=== PATIENT | female | born 1955 | race Caucasian/White ===

== ENCOUNTER 2024-08-02 07:22 | Day surgery (SDC) | payer MEDICARE ==
[~2024-08-02] VITALS: Ht 160 cm; Wt 63.5 kg
[~2024-08-02 07:22] MED LIST: ATOR40TA75 PO; EFFE75CA2 PO; LISI40TA4 PO; LORA-243 PO; METO1TAB32 PO; PANT-23 PO; SYNT100T PO
[2024-08-02] MEDS ORDERED: fentaNYL 100 MCG/2 ML INJECTION As Ordered ONE (07:49)
[2024-08-02] MEDS ORDERED: propofoL 200 MG/20 ML VIAL As Ordered ONE (07:50)
[2024-08-02] MEDS ORDERED: MIDAZOLAM INJ 2MG/2ML VIAL As Ordered ONE (07:50)
[2024-08-02] MEDS ORDERED: ONDANSETRON 4MG 2ML VIAL As Ordered ONE (07:50)
[2024-08-02] MEDS ORDERED: LIDOCAINE 2% 100MG/5ML SDV (FOR ANES.) As Ordered ONE (07:50)
[2024-08-02] MEDS ORDERED: KETOROLAC 30 MG/ML 1ML VIAL As Ordered ONE (07:51)
[2024-08-02] MEDS ORDERED: ACETAMINOPHEN 1000MG/100ML IV BAG As Ordered ONE (07:51)
[2024-08-02] MEDS ORDERED: LR 1,000 ML IV SCH (08:05)
[2024-08-02 08:46] LABS: HEMOGLOBIN 13.1 g/dl (12.0-15.5)
[2024-08-02] MEDS: LIDOCAINE 1% SDV 30ML VIAL As Ordered ONE (09:47)
[2024-08-02] MEDS ORDERED: ONDANSETRON 4MG 2ML VIAL IV PRN (10:05)
[2024-08-02] MEDS ORDERED: fentaNYL 100 MCG/2 ML INJECTION IV PRN (10:05)
[2024-08-02] MEDS ORDERED: oxyCODONE 5MG TAB PO PRN (10:05)
[2024-08-02 11:00] VITALS: BP 132/78; TEMP 97; O2SAT 97
== END 2024-08-02 11:06 | disposition home or self-care (01) ==
LOC: M SDC 07:22
PROVIDERS: ATTEND Obstetrics & Gynecology
DX: R93.89 Abnormal findings on diagnostic imaging of other specified body structures (principal); N93.0 Postcoital and contact bleeding; G47.30 Sleep apnea, unspecified; Z88.2 Allergy status to sulfonamides; Z79.899 Other long term (current) drug therapy
CPT/HCPCS: 36415; 58558; 85014; 85018; 86850; 88305; J0131; J1100; J1885; J2250; J2405; J3010

== ENCOUNTER 2025-01-23 06:07 | Day surgery (SDC) | payer MEDICARE ==
[~2025-01-23] VITALS: Ht 160 cm; Wt 64.9 kg
[~2025-01-23 06:07] MED LIST changes: +LISI40TA10 PO; -LISI40TA4 PO; +TRAZ1TAB11 PO
[2025-01-23 06:47] LABS: PLATELET COUNT, AUTOMATED 229 10^3/uL (150-450)
[2025-01-23] MEDS ORDERED: LR 1,000 ML IV SCH ×2 (06:50→09:30)
[2025-01-23] MEDS ORDERED: ROCURONIUM BROMIDE 50MG/5ML VIAL As Ordered ONE (07:09)
[2025-01-23] MEDS ORDERED: ONDANSETRON 4MG 2ML VIAL As Ordered ONE (07:09)
[2025-01-23] MEDS ORDERED: LIDOCAINE 2% 100 MG/5 ML SDV (FOR ANES.) As Ordered ONE (07:09)
[2025-01-23] MEDS ORDERED: SUGAMMADEX SODIUM 200 MG/2 ML VIAL As Ordered ONE (07:09)
[2025-01-23] MEDS ORDERED: dexAMETHasone 4 MG/ML 1 ML VIAL As Ordered ONE (07:09)
[2025-01-23] MEDS ORDERED: HYDROmorphone HCL 2 MG/ML 1 ML VIAL As Ordered ONE (07:10)
[2025-01-23] MEDS ORDERED: dexmedeTOMIDine (4 MCG/ML) 200 MCG/50 ML BTL As Ordered ONE (07:10)
[2025-01-23] MEDS ORDERED: MIDAZOLAM INJ 2 MG/2 ML VIAL As Ordered ONE (07:10)
[2025-01-23 07:20] LABS: ALT/SGPT 25.0 U/L (7.0-40); AST/SGOT 33.0 U/L (<34); CALCIUM LEVEL 10.0 MG/DL (8.3-10.6); CARBON DIOXIDE LEVEL 28.0 MMOL/L (20-31); CHLORIDE LEVEL 106.0 MMOL/L (98-107); CREATININE FOR GFR 0.83 MG/DL (0.55-1.30); GLOMERULAR FILTRATION RATE 76.7 (>45); POTASSIUM SERUM 4.7 MMOL/L (3.5-5.1); SODIUM LEVEL 141.0 MMOL/L (136-145)
[2025-01-23] MEDS: ceFAZolin SOD 2 GM IV ONCE IV ONE (07:48)
[2025-01-23] MEDS ORDERED: PHENYLephrine 500MCG 5ML (100MCG/ML) SYRINGE As Ordered ONE (07:58)
[2025-01-23] MEDS ORDERED: ACETAMINOPHEN 1000MG/100ML IV BAG As Ordered ONE (07:59)
[2025-01-23] MEDS: ACETAMINOPHEN *IV* 1,000 MG in IV 1 EA IV ONE (08:05)
[2025-01-23] MEDS ORDERED: UNRESOLVED CLARIFICATION ENTRY XX SCH (09:00)
[2025-01-23] MEDS: HYDROMORPHONE HCL 0.5 MG/0.5 ML SYRINGE IV PRN (10:26)
[2025-01-23] MEDS: ONDANSETRON 4MG 2ML VIAL IV PRN (10:26)
[2025-01-23 12:29] VITALS: BP 123/68; TEMP 97.2; O2SAT 96
[2025-01-23] MEDS ORDERED: KETOROLAC 30 MG/ML 1 ML VIAL IV SCH (14:00)
== END 2025-01-23 12:29 | disposition home or self-care (01) ==
LOC: M SDC 06:07
PROVIDERS: ATTEND Obstetrics & Gynecology
DX: N88.8 Other specified noninflammatory disorders of cervix uteri (principal); N83.201 Unspecified ovarian cyst, right side; I10 Essential (primary) hypertension; E03.9 Hypothyroidism, unspecified; E78.00 Pure hypercholesterolemia, unspecified; K21.9 Gastro-esophageal reflux disease without esophagitis; G47.30 Sleep apnea, unspecified; Z79.899 Other long term (current) drug therapy; Z79.890 Hormone replacement therapy; Z85.3 Personal history of malignant neoplasm of breast; Z98.51 Tubal ligation status; Z92.21 Personal history of antineoplastic chemotherapy; Z90.13 Acquired absence of bilateral breasts and nipples; Z88.2 Allergy status to sulfonamides
CPT/HCPCS: 36415; 58571; 80053; 85027; 86850; 86900; 86901; 88307; J0131; J0665; J0690; J1100; J1171; J2250; J2371; J2405; J3010